=== PATIENT | male | born 1985 | race Caucasian/White ===

== ENCOUNTER 2021-08-10 13:30 | Emergency (ER) | payer MEDICAID, SELFPAY ==
[~2021-08-10] VITALS: Ht 170.2 cm; Wt 67.1 kg
[2021-08-10 13:40] VITALS: BP 139/85
[2021-08-10] MEDS ORDERED: NACL 0.9% 1,000 ML IV ONE (13:55)
[2021-08-10] MEDS ORDERED: MULTIVITAMIN-12 10 ML, THIAMINE 100 MG, MAGNESIUM SULFATE 50% 2,000 MG, FOLIC ACID 1 MG... IV SCH ×5 (13:55)
[2021-08-10] MEDS ORDERED: LORazepam 2 MG/ML VIAL IVP ONE (13:55)
[2021-08-10 14:43] LABS: BASOPHILS % (AUTO) 0.7 % (0.0-2.0); EOSINOPHILS % (AUTO) 0.1 % (0.0-4.0); HEMATOCRIT 32.4 % (36-52); LYMPHOCYTES # (AUTO) 0.2 K/uL (2.0-11.5); LYMPHOCYTES % (AUTO) 9.6 % (20.5-51.1); MEAN CORPUSCULAR HEMOGLOBIN 30 pg (27-31); MEAN CORPUSCULAR HGB CONC 34 g/dL (33-37); MEAN CORPUSCULAR VOLUME 87.1 fL (80-94); MONOCYTES # (AUTO) 0.3 K/uL (0.8-1.0); NEUTROPHILS % (AUTO) 79.6 % (42.2-75.2); PLATELET COUNT (AUTO) 56 K/uL (140-450); RED BLOOD CELL COUNT(AUTO) 3.72 MIL/uL (4.20-6.10); RED CELL DISTRIBUTION WIDTH 15.5 % (11.6-13.7); WHITE BLOOD COUNT (AUTO) 2.5 K/uL (4.8-10.8)
[2021-08-10] MEDS ORDERED: KETOROLAC 30 MG/ML VIAL IVP ONE (14:50)
[2021-08-10] MEDS ORDERED: ONDANSETRON 4 MG/2 ML VIAL IVP ONE (14:50)
[2021-08-10 15:06] LABS: ALBUMIN 3.6 g/dL (3.4-5.0); ANION GAP 15.5 (8-16); ASPARTATE AMINOTRANSFERASE 159 U/L (15-37); CARBON DIOXIDE 26.5 mmol/L (21-32); CHLORIDE 101 mmol/L (98-107); CREATININE 0.8 mg/dL (0.6-1.3); GFR ARICAN-AMERICAN 142 mL/min (>90); GLUCOSE 107 mg/dL (74-106); SODIUM SERUM 140 mmol/L (136-145); UREA NITROGEN, BLOOD 7 mg/dL (7-18)
[2021-08-10 15:10] LABS: SALICYLATE < 2.8 mg/dL (2.8-20.0)
[2021-08-10 15:11] LABS: ACETAMINOPHEN < 0.5 ug/ml (10-30)
--- NOTE | 2021-08-10 15:58 | NUR ---
Brennon steele in [facility] - 08/10/21 at [address] GALEAS, TO BOLUS MULTI-VITAMIN B12 BAG
--- NOTE | 2021-08-10 16:02 | NUR ---
Brennon steele in ED - 08/10/21 at 1603 by [facility] PER DR. GALEAS, TO BOLUS MULTI-VITAMIN B12 BAG
--- NOTE | 2021-08-10 16:05 | NUR ---
PER PHARMACY, START MULTI-VITAMIN IV BAG AT RATE 150ML/HR.
[2021-08-10] MEDS ORDERED: POTASSIUM CHLORIDE 10 MEQ TABER PO ONE ×3 (18:25→20:09)
[2021-08-10] MEDS ORDERED: ONDA8TAB87 PO (18:54)
[2021-08-10] MEDS ORDERED: IBUP-2213 PO (18:54)
--- NOTE | 2021-08-10 19:40 | NUR ---
at bedside closing wound
[2021-08-10] MEDS ORDERED: LORazepam 2 MG/ML VIAL ONE (20:07)
--- NOTE | 2021-08-10 21:30 | NUR ---
pt laying in bed talking to mom on cellphone. pt states he feels better and is seeking help for his addiction. vss. bed ion lowest position
[2021-08-10 21:55] VITALS: BP 120/69
--- NOTE | 2021-08-10 21:55 | NUR ---
Patient discharged with v/s stable. Written and verbal after care instructions given and explained. Patient alert, oriented and verbalized understanding of instructions. Ambulatory with steady gait. All questions addressed prior to discharge. ID band removed. Patient advised to follow up with PMD. Rx of ibuprofen and zofran given. Opportunity to ask questions provided and answered.
== END 2021-08-10 21:55 | disposition home or self-care (01) ==
LOC: MED 13:30
DX: F10.239 Alcohol dependence with withdrawal, unspecified (principal); R11.2 Nausea with vomiting, unspecified; R10.13 Epigastric pain
CPT/HCPCS: 36415; 80053; 83690; 85025; 93005; 96361; 96365; 96366; 96372; 96375; 99285; G0480; G0482; J1885; J2060; J2405; J7030; A9153; J3411; J3475; J3490; J7060